=== PATIENT | male | born 1965 | race Caucasian/White ===

== ENCOUNTER 2023-01-15 11:30 | Emergency (ER) | payer BC, OTHER ==
[~2023-01-15] VITALS: Ht 180.3 cm; Wt 86.2 kg
[2023-01-15 11:40] VITALS: O2SAT 97
[2023-01-15] MEDS ORDERED: LIDOCAINE HCL 2% 20 ML VIAL ONE (11:53)
[2023-01-15] MEDS ORDERED: BACITRACIN ZINC OINT 15 GM TUBE ONE (12:01)
[2023-01-15] MEDS ORDERED: NEOMY/BACITRA/POLYMYXIN B OINT UD PACKET TP ONE (12:02)
[2023-01-15] MEDS ORDERED: TDAP DIPH,PERTUSS,TET VAC/PF 0.5 ML DISP.SYRIN IM ONE ×2 (12:14→12:30)
[2023-01-15] MEDS ORDERED: CEPH500T PO (12:18)
== END 2023-01-15 12:40 | disposition home or self-care (01) ==
LOC: ER 11:30
DX: S61.411A Laceration without foreign body of right hand, initial encounter (principal); Z79.899 Other long term (current) drug therapy; W26.8XXA Contact with other sharp object(s), not elsewhere classified, initial encounter; Y93.89 Activity, other specified; Y92.89 Other specified places as the place of occurrence of the external cause; Y99.8 Other external cause status
CPT/HCPCS: 12002; 90471; 90715; 99283; J3490; A4663